=== PATIENT | female | born 1985 | race Caucasian/White ===

== ENCOUNTER 2018-05-16 12:56 | Emergency (ER) | payer MEDICAID ==
[~2018-05-16] VITALS: Ht 152.4 cm; Wt 52.6 kg
[2018-05-16 13:05] VITALS: Ht 152.4 cm; Wt 52.6 kg
[2018-05-16 14:12] VITALS: BP 114/85
== END 2018-05-16 14:12 | disposition home or self-care (01) ==
LOC: ED 12:56
DX: G44.209 Tension-type headache, unspecified, not intractable (principal); M25.579 Pain in unspecified ankle and joints of unspecified foot